=== PATIENT | female | born 1995 | race Caucasian/White ===

== ENCOUNTER 2025-01-10 12:35 | Emergency (ER) | payer OTHER, SELFPAY ==
[2025-01-10 12:55] VITALS: BP 154/94; BP 165/107; PULSE 94; TEMP 37.1; O2SAT 100; BMI 43.6
--- NOTE | 2025-01-10 14:50 | ED_ITS ---
HPI HPI - General Adult General Chief complaint: Nausea/Vomiting/Diarrhea Stated complaint: DEHYDRATION Time Seen by Provider: 01/10/25 13:14 Source: patient Mode of arrival: walk-in History of Present Illness HPI narrative: Patient is a 29-year-old female who is presenting to the ER with chief complaint of elevated blood pressure. Patient believes that she is having a POTS episode where she is dehydrated, having mild headache, having diffuse intermittent myalgia, arthralgia, and patient believes that she needs a liter of IV fluid. Patient did take her blood pressure medication this morning and is also due to take her medication at 3 PM today. Patient has no chest pain or shortness of breath. Patient has a friend at bedside. Patient PCP is in [place], her asset administrator is in [place]. She did not call either 1 of those physicians today, she came to the ER. Patient did not take any Tylenol or anything to help with her headache. Patient says that she is not sure what medication to take and nothing works so she does not take anything. Patient believes that 1 L of IV fluids will help treat her symptoms. She is not tachycardic, she is not hypotensive. No recent fall, no head injury. No other acute complaints. All systems are negative except as noted/marked. All systems reviewed and otherwise negative. Nurses note and vital signs reviewed and patient is not hypoxic. General: The patient appears well and in no apparent distress. Patient is resting comfortably on cart. Patient is not toxic, lethargic, or listless Skin: Warm, dry, no pallor noted. There is no rash noted. No petechiae, purpura. Head: Normocephalic, atraumatic; patient has full range of motion of cervical spine no difficulty. No meningeal signs or symptoms. No nuchal rigidity. Eye: Normal conjunctiva, no drainage, EOMI. PERRL Ears, Nose, Mouth, and Throat: oral mucosa is moist. Nares patent. Mouth without vesicles. Cardiovascular: Regular Rate and Rhythm, no murmur, gallop, rub Respiratory: Patient is in no distress, no accessory muscle use, lungs are clear to auscultation, no wheezing, rales or rhonchi Back: non-tender, no CVA tenderness bilaterally to percussion. No CT LS midline pain GI: Soft, morbidly obese, no tenderness to palpation, no masses appreciated. No rebound, guarding, or rigidity noted. No distention. Musculoskeletal: Patient has full range of motion of all of the extremities, no motor, sensory, or focal neurological deficits Neurological: A&O x4, normal speech Psychiatric: Cooperative Related Data Home Medications ?Medication ?Instructions ?Recorded ?Confirmed albuterol sulfate 2.5 mg/3 mL mg 01/10/25 (0.083 %) solution for nebulization albuterol sulfate 90 mcg/actuation inhalation 01/10/25 aerosol inhaler amlodipine 5 mg tablet mg 01/10/25 hydroxyzine HCl 25 mg tablet mg 01/10/25 metoprolol succinate 50 mg mg PO 01/10/25 tablet,extended release 24 hr Previous Rx's ?Medication ?Instructions ?Recorded dicyclomine 20 mg tablet 20 mg PO TID PRN abdominal p ain #7 01/10/25 tabs ondansetron 4 mg disintegrating 4 mg PO Q4H PRN nausea and 01/10/25 tablet vomiting 3 days #6 tabs Allergies Allergy/AdvReac Type Severity Reaction Status Date / Time propofol Allergy lungs Verified 01/10/25 12:55 collapse PFSH PFSH Social History Little interest or pleasure in doing things: not at all Feeling down, depressed, or hopeless: not at all Exam Constitutional Vital Signs, click to edit/add: Last Vital Signs Temp 98.7 F 01/10/25 12:55 Pulse 94 H 01/10/25 12:55 Resp 18 01/10/25 12:55 BP 165/107 H 01/10/25 12:55 Pulse Ox 100 01/10/25 12:55 O2 Del Method Room Air 01/10/25 12:55 Course Vital Signs Vital signs: Vital Signs Temperature 98.7 F 01/10/25 12:55 Pulse Rate 94 H 01/10/25 12:55 Respiratory Rate 18 01/10/25 12:55 Blood Pressure 165/107 H 01/10/25 12:55 Pulse Oximetry 100 01/10/25 12:55 Oxygen Delivery Method Room Air 01/10/25 12:55 Temperature 98.7 F 01/10/25 12:55 Pulse Rate 94 H 01/10/25 12:55 Respiratory Rate 18 01/10/25 12:55 Blood Pressure 165/107 H 01/10/25 12:55 Pulse Oximetry 100 01/10/25 12:55 Oxygen Delivery Method Room Air 01/10/25 12:55 Medical Decision Making MDM Narrative Medical decision making narrative: Patient seen and examined: Patient has elevated blood pressure, patient believes she needs IV fluids. Patient believes that she gets a POTS episode 4 times a year and goes to the ER needs fluids. Differential diagnosis includes but is not limited to: Headache, dehydration, PR, electrolyte abnormality, acute on chronic POTS episode Diagnostics and management: Patient will have laboratory studies Relevant laboratory interpretation: No acute indication. Radiological studies: Please see the formal radiological report. No acute indication. Reevaluation: 10 minutes was spent with discussion with patient and her friend at bedside on the acute indication for emergency testing, IV fluids versus outpatient. Patient will be given oral Zofran. Patient was given a prescription for Zofran and Bentyl and she can hydrate as an outpatient. There is no acute indication for hydration at this time. Shared decision making: I discussed with the patient the necessary laboratory findings and radiological findings. Social barriers to healthcare: There are no food insecurities, there is no issue with transportation, there are no insurance barriers. Disposition: I discussed with the patient acute indication for IV fluids, lab work, EKG. I did educate patient that she could speak to her PCP and if there is episodes that she has and she believes she needs IV fluids and her doctor agrees, she could be getting IV fluids in the outpatient infusion center in [facility]. Discharge Plan Discharge Chief Complaint: Nausea/Vomiting/Diarrhea Clinical Impression: Hypertension Patient Disposition: Home, Self-Care Time of Disposition Decision: 14:44 Condition: Fair Prescriptions / Home Meds: New dicyclomine 20 mg tablet 20 mg PO TID PRN (Reason: abdominal pain) Qty: 7 0RF ondansetron 4 mg tablet,disintegrating 4 mg PO Q4H PRN (Reason: nausea and vomiting) 3 Days Qty: 6 0RF No Action albuterol sulfate 2.5 mg /3 mL (0.083 %) solution for nebulization metoprolol succinate 50 mg tablet extended release 24 hr PO amlodipine 5 mg tablet hydroxyzine HCl 25 mg tablet albuterol sulfate 90 mcg/actuation HFA aerosol inhaler INHALATION Print Language: Irish Instructions: Acute Nausea and Vomiting (ED), Hypertension (ED) Additional Instructions: Take your blood pressure medication as scheduled. If you are having additional symptoms and concerns for dehydration or POTS syndrome, follow-up with your PCP. We have discussed speaking to your PCP and seeing if you can have a standing order at a infusion center for IV fluids if needed when you feel like you are having a POTS episode. This was discussed at bedside. Follow-up with your PCP and asset administrator in [place] for any other acute concerns. Your vital signs has not shown any significant signs of dehydration. Use Zofran if needed to help increase fluids at home, Gatorade, Powerade, or water. Use Zofran if needed for nausea, use Bentyl if needed for belly cramping. Referrals: [facility] [Primary Care Provider] - 1 week
== END 2025-01-10 15:02 | disposition home or self-care (01) ==
PROVIDERS: Emergency Provider Emergency Medicine; PCP Nurse Practitioner Family
DX: I10 Essential (primary) hypertension (principal); Z79.899 Other long term (current) drug therapy; E66.01 Morbid (severe) obesity due to excess calories; Z68.41 Body mass index [BMI] 40.0-44.9, adult
CPT/HCPCS: 99283